=== PATIENT | female | born 1985 ===

== ENCOUNTER → 2018-05-09 15:15 | Observation (INO) ==
[2018-05-09 12:29] LABS: Bilirubin,Urine Negative (Negative); Blood,Urine Negative (Negative); Clarity,Urine Cloudy (Clear); Color,Urine Yellow (Yellow); Glucose,Urine (UA) Normal (Normal); Ketones,Urine Negative (Negative); Leukocyte Esterase,Urine Negative (Negative); Nitrite,Urine Negative (Negative); Protein,Urine Negative (Neg-Trace); Specific Gravity,Urine 1.017 (1.010-1.025); Urobilinogen,Urine Normal (Normal)
[2018-05-09 12:31] LABS: Bacteria,Urine None Seen per hpf (None-Few); Hyaline Casts,Urine None Seen per lpf (None-Few); RBC,Urine 0-3 per hpf (0-3); Squamous Epithelial Cell,Urine Many per lpf (None-Few); WBC,Urine 0-3 per hpf (0-3)
[2018-05-09 12:40] LABS: Amphetamine Screen,Urine Negative ng/mL (Cutoff=1000); Barbiturate Screen,Urine Negative ng/mL (Cutoff=200); Benzodiazepines Screen,Urine Negative ng/mL (Cutoff=200); Cannabinoid Screen,Urine Negative ng/mL (Cutoff = 50); Cocaine Screen,Urine Negative ng/mL (Cutoff= 300); Opiate Screen,Urine Negative ng/mL (Cutoff=300); Phencyclidine Screen,Urine Negative ng/mL (Cutoff=25)
--- NOTE | 2018-05-09 15:00 | Discharge Summary ---
Date of Encounter: 05/09/18 Time of Encounter: 14:59 - Discharge Diagnosis (1) 31 weeks gestation of Priority: Primary Status: Acute Comments: Follow-up with Dr. Bae as scheduled labor parameters given Discharge home (2) Symphysis pubis disruption Priority: Secondary Status: Acute Comments: Obtain a maternity support belt Qualifiers: Encounter type: initial encounter Qualified Code(s): S33.4XXA - Traumatic rupture of symphysis pubis, initial encounter - Discharge Medications Home Medications: Ferrous Sulfate tab PO DAILY 05/09/18 [History] Multi Tablet 1 tab PO DAILY 05/09/18 [History] Allergies/Adverse Reactions: 3 Allergy/AdvReac Type Severity Reaction Status Date / Time No Known Allergies Allergy Verified 05/09/18 12:59 Data Procedures and tests throughout hospitalization: Laboratory Tests 05/09/18 05/09/18 12:10 12:10 Urine Color Yellow Urine Clarity Cloudy A Urine pH 6.0 Ur Specific [place] 1.017 Urine Protein Negative Urine Glucose (UA) Normal Urine Ketones Negative Urine Blood Negative Urine Nitrite Negative Urine Bilirubin Negative Urine Urobilinogen Normal Ur Leukocyte Esterase Negative Urine Microscopic RBC 0-3 Urine Microscopic WBC 0-3 Ur Squamous Epith Cells Many H Urine Bacteria None Seen Hyaline Casts None Seen Urine Opiates Screen Negative Ur Barbiturates Screen Negative Ur Phencyclidine Scrn Negative Ur Amphetamines Screen Negative U Benzodiazepines Scrn Negative Urine Cocaine Screen Negative U Marijuana (THC) Screen Negative Ur Drug Screen Interp See Below Labs on day of discharge: Labs from last 24 hours 05/09/18 05/09/18 12:10 12:10 Urine Color Yellow Urine Clarity Cloudy A Urine pH 6.0 Ur Specific [place] 1.017 Urine Protein Negative Urine Glucose (UA) Normal Urine Ketones Negative Urine Blood Negative Urine Nitrite Negative Urine Bilirubin Negative Urine Urobilinogen Normal Ur Leukocyte Esterase Negative Urine Microscopic RBC 0-3 Urine Microscopic WBC 0-3 Ur Squamous Epith Cells Many H Urine Bacteria None Seen Hyaline Casts None Seen Urine Opiates Screen Negative Ur Barbiturates Screen Negative Ur Phencyclidine Scrn Negative Ur Amphetamines Screen Negative U Benzodiazepines Scrn Negative Urine Cocaine Screen Negative U Marijuana (THC) Screen Negative Ur Drug Screen Interp See Below Date of admission: 05/09/18 12:03 Discharging clinician: Rina Griggs Anticipated date of discharge: 05/09/18 - Patient Status Disposition: Home, Self-Care Condition: Good Functional capacity at discharge: independent ambulation Overall status at discharge: patient is progressing back to baseline - Discharge Instructions Follow Up With: Britney Bae MD [Partnered Physician] - Additional Instructions: Obtain maternity belt for symphisis pubis pain - Diet and Activity Activity: increase activity as tolerated Diet: regular diet Hospital Course 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 She reports pain with sitting and with urination. She endorses good movement and denies leakage of fluid, contractions, vaginal bleeding. UA studies were negative. On further inspection it was determined that she likely has SPD. She was advised to obtain a maternity support belt. Time Attestation: Total time spent providing and/or coordinating discharge services: Time Spent: Greater than 30 minutes Exam - Constitutional General appearance IM: mild distress, A&O X 3, pleasant - Respiratory Respiratory exam: Present: CTAB - Cardiovascular Cardiovascular exam IM: Present: RRR, +S1, +S2 - GI/Abdominal GI/Abdominal exam IM: normal bowel sounds, no peritoneal signs - Rectal Rectal exam: deferred - Uterine Tone: Firm - Extremities Exam Extremities exam IM: Present: normal capillary refill, normal inspection, radial pulses palpable and symmetrical - Neurological Exam Neurological exam: alert, CN II-XII intact, normal gait, oriented X3, reflexes normal, no focal deficits, strengths equal and symetr throughout - VTE Reasons for not Prescribing Prophylaxis: Treatment not Indicated - Low risk for VTE
== END | disposition home or self-care (01) ==
LOC: 1NENULAB
PROVIDERS: ADMIT Obstetrics & Gynecology; ATTEND Obstetrics & Gynecology

== ENCOUNTER 2018-05-18 14:50 | Inpatient (IN) ==
[~2018-05-18 14:50] MED LIST: *HR* Nalbuphine 10 MG/ML AMPUL IVP PRN; CeFAZolin Premix DUPLEX 2,000 MG/50 ML BAG IVPB ONE; Famotidine 20 MG/2 ML VIAL IVP PRN; Metoclopramide 10 MG/2 ML VIAL IVP PRN; Naloxone 0.4 MG/ML INJ IVP PRN; Ondansetron 4 MG/2 ML VIAL IVP PRN; Oxytocin 20 units/ LR 1000 mL 20 UNIT/1,000 ML BAG IVC ONE; Ringers Solution, Lactated 1,000 ML IVC ONE; Ringers Solution, Lactated 1,000 ML ONE
[2018-05-18] MEDS ORDERED: Ringers Solution, Lactated 1,000 ML IVC SCH ×2 (15:00→18:34)
[2018-05-18] MEDS ORDERED: Oxytocin 20 units/ LR 1000 mL 20 UNIT/1,000 ML BAG IVC SCH (15:00)
[2018-05-18 15:06] LABS: Basophils % 0.2 %; Eosinophils % 0.2 %; Hematocrit 37.1 % (35.3-44.9); Hemoglobin 12.4 g/dL (11.5-15.4); Immature Granulocytes % 1.8 % (0-4); Lymphocytes # 1.7 K/mcL (0.6-4.6); Lymphocytes % 16.2 %; Mean Corpuscular HGB Conc 33.4 g/dL (31.6-35.5); Mean Corpuscular Hemoglobin 33.4 pg (28.0-33.3); Mean Platelet Volume 11.8 fL (9.4-12.4); Monocytes % 9.5 %; Neutrophils # 7.4 K/mcL (1.6-8.9); Nucleated Red Blood Cells 1.7 /100 WBC (0); Platelet Count 226 K/mcL (140-400); Red Blood Count 3.71 M/mcL (3.82-4.97); Red Cell Distribution Width 13.5 % (11.5-14.5); Segmented Neutrophils % 72.1 %
[2018-05-18 15:14] LABS: Amphetamine Screen,Urine Negative ng/mL (Cutoff=1000); Barbiturate Screen,Urine Negative ng/mL (Cutoff=200); Benzodiazepines Screen,Urine Negative ng/mL (Cutoff=200); Cannabinoid Screen,Urine Negative ng/mL (Cutoff = 50); Cocaine Screen,Urine Negative ng/mL (Cutoff= 300); Opiate Screen,Urine Negative ng/mL (Cutoff=300); Phencyclidine Screen,Urine Negative ng/mL (Cutoff=25)
[2018-05-18] MEDS ORDERED: *HR* Morphine 2 MG/ML SYRINGE IVP PRN (15:36)
--- NOTE | 2018-05-18 15:36 | Anesthesia Evaluation PreOp ---
Date of Encounter: 05/18/18 Time of Encounter: 15:00 - Past History Planned Operation: Stat Cardiac History: Denies any Significant Hx Pulmonary History: Denies Any Significant HX SENIOR STAFF PSYCHOLOGIST History: Denies Any Significant HX Other Medical History: Denies Any Significant HX Anesthesia History: No Prior Anesthetic Complications : Yes (32 week) Alcohol Use: none Drug use: none Medications and Allergies Ferrous Sulfate tab PO DAILY 05/09/18 [History] Multi Tablet 1 tab PO DAILY 05/09/18 [History] 3 Allergy/AdvReac Type Severity Reaction Status Date / Time No Known Allergies Allergy Verified 05/09/18 12:59 - Meds/Allergy Pre-op Review Medications Reviewed: Yes Allergies Reviewed: Yes Beta Blockers on Current Med List: No Anesthesia Results - Labs 05/18/18 14:40 Anesthesia Exam NPO (# of Hours): MN - HEENT Pupil (Motor): Pupils equal, EOMI Mallampati: II Teeth: Normal Oral Opening: Greater than 3 - SENIOR STAFF PSYCHOLOGIST LOC: Oriented SENIOR STAFF PSYCHOLOGIST Motor: Normal RUE, Normal LUE, Normal RLE, Normal LLE, Normal Face SENIOR STAFF PSYCHOLOGIST Sensory: Normal: RUE, LUE, RLE, LLE, Face - Cardiac Rhythm: Regular Murmur: None JVD: No Carotid Bruit: No - Pulmonary Breath Sounds: bilateral Clear Respiratory Effort: Symmetrical Anesthesia Assess/Plan ASA Score: 2, E Modified [place] Scale for Level of Consciousness: Cooperative, oriented, and tranquil Anesthetic Plan: General Monitoring Plan: Standard Monitors Recovery Plan: PACU (Discussed GA)
[2018-05-18] MEDS ORDERED: Acetaminophen IV 1,000 MG/100 ML INFUS..BTL IVPB ONE (15:37)
[2018-05-18] MEDS ORDERED: Ondansetron 4 MG/2 ML VIAL IVP ONE (15:38)
[2018-05-18] MEDS ORDERED: Dexamethasone 4 MG/ML VIAL ONE (15:59)
[2018-05-18] MEDS ORDERED: *HR* Propofol 200 MG/20 ML VIAL IVP ONE (15:59)
[2018-05-18] MEDS ORDERED: *HR* Oxytocin 10 UNIT/ML VIAL IM ONE (15:59)
[2018-05-18] MEDS ORDERED: Ondansetron 4 MG/2 ML VIAL ONE (15:59)
[2018-05-18] MEDS ORDERED: *HR* FentaNYL (PF) 100 MCG/2 ML VIAL ONE ×2 (15:59→16:21)
[2018-05-18] MEDS ORDERED: *HR* Succinylcholine 200 MG/10 ML VIAL IVP ONE (15:59)
[2018-05-18] MEDS ORDERED: *HR* Morphine Sulfate/PF 10 MG/10 ML AMPUL ONE (15:59)
[2018-05-18] MEDS ORDERED: Naloxone 0.4 MG/ML INJ IVP PRN ×2 (16:29→19:32)
[2018-05-18] MEDS ORDERED: *HR* HYDROmorphone 20 MG/20 ML PCA IVC PRN ×2 (16:29→19:32)
--- NOTE | 2018-05-18 18:02 | OB/GYN History & Physical ---
Date of Encounter: 05/18/18 Time of Encounter: 17:55 Assessment and Plan (1) with 32 completed weeks gestation Current visit: Yes Status: Acute (2) Twin gestation in third trimester Current visit: Yes Status: Acute Qualifiers: Multiple gestation type: dichorionic and diamniotic Qualified Code(s): O30.043 - Twin , dichorionic/diamniotic, third trimester (3) distress Current visit: Yes Status: Acute twin A with micrognathia close antepartum monitoring has been continued and biophysical profile was determined to be 2 out of 8 today. Did discuss his case with NICU as per H&P I decision was made to proceed with section History of Present Illness Chief complaint: Twin gestation at 32 weeks and 3 days, twin A with distress biophysic HPI: Ms. Orosco is a 32 year old female 3 para 0 female with an EDC of 1110 2018 presents at 32 weeks 2 days' gestation. Patient had transferred care during this from [place] where she is undergoing infertility treatment patient with diabetes undergone selective reduction to 2. Patient had been followed by [facility] maternal medicine after twin A was noted to have polyhydramnios as well as probable micrognathia and small stomach. There have been no genetic testing performed. Last ultrasound for growth was on April 05 which time both infants were concordant growth approximately 19%. She had been seen last Friday with biophysical profile of 6 out of 8 at [facility] and had been admitted For observation over the weekend and left AGAINST MEDICAL ADVICE yesterday. She came in today to the office in biophysical profile twin A showed [address] Oneill did discuss case with [facility] maternal medicine Dr. Lissette Kiran. By she be transferred to labor and delivery placed on the monitor discontinued have nonreactive NST have repeat biophysical profile and 15 minutes. This was performed afterwards did not really follow twin A indicating biophysical profile was 2 out of 8. We did have 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 She is aware of my concern over risk of transfer however she is also aware we are great risk of difficult intubation and possible loss of in today for delivery here requiring intubation or tracheostomy tube and it could not be performed. Patient did consent for delivery here with great concern over further harm to twin A if delivery was expedited. We did discuss operative risks with patient via a tar and ammonia pump operator and written consent was obtained. Past Med Surg Social Fam HX - Past Medical History Source: patient, old records reviewed Medical history: no medical history Psychiatric history: no psych history - Past Surgical History Additional surgical history: appy - Social History Smoking Status: Never smoker Smokeless Tobacco Status: No Alcohol use: none Drug use: none Obstetrical History - Pregnancies : 3 Medications and Allergies Ferrous Sulfate tab PO DAILY 05/09/18 [History] Multi Tablet 1 tab PO DAILY 05/09/18 [History] 3 Allergy/AdvReac Type Severity Reaction Status Date / Time No Known Allergies Allergy Verified 05/09/18 12:59 Exam - Constitutional Constitutional: well developed, well nourished, no acute distress - HEENT HEENT: EOMI, PERRL - Neck Neck exam: full ROM - Lungs Respiratory exam: CTAB - Cardiovascular Cardiovascular exam: RRR - Abdomen Abdomen: Present: gravid - Extremities Extremities exam: full ROM Deep Tendon Reflex Grade: 2+ Normal Results Result Diagrams: 05/18/18 14:40 Abnormal lab results RBC 3.71 M/mcL (3.82-4.97) L 05/18/18 14:40 MCH 33.4 pg (28.0-33.3) H 05/18/18 14:40 Nucleated RBCs/100 WBC 1.7 /100 WBC (0) H 05/18/18 14:40 All other labs normal.
--- NOTE | 2018-05-18 18:08 | OB/GYN Procedure Note ---
Section - Date of procedure: 05/18/18 Preop diagnosis: other (Twin gestation, distress of twin A necessitating delivery, polyhydramnios around twin A as well as micrognathia and small stomach of twin A) Surgeon: Tal Amezquita Quantitated Blood Loss: 900 Was there an production administrative assistant present: No Anesthesiologist: Donovan Pizarro Mortar Worker: Alex Jacome Anesthesia Type: General section complications: none Disposition: L&D Recovery Room Specimens: Placenta, Cord gasses - Infant (s) A Delivery Date: 05/18/18 Delivery Time: 15:19 Presentation: vertex Gender: Female Viability: Viable Shoulder Dystocia: not encountered Specimens collected: cord blood Cord: 3 umbilical vessels Infant B Delivery Date: 05/18/18 Delivery Time: 15:19 Gender: Female Viability: Viable Shoulder Dystocia: not encountered Cord: 3 umbilical vessels - Narrative Narrative: 32-year-old 3 para 0 female at 32 weeks 2 days' gestation with twin gestation. complicated by twin A with polyhydramnios as well as suspected micrognathia stomach. She has been undergoing close antepartum monitoring and actually been admitted to [facility] on Friday after biophysical profile 6 out of 10. She did leave AGAINST MEDICAL ADVICE yesterday and was seen in our office today for biophysical profile. Today biophysical profile for twin A was [address] Lemus he did speak with the [facility] maternal medicine advised patient come to labor and delivery if she does not have reactive NST to have another biophysical profile and 15 minutes. This was done and second biophysical profile was again to elevate. As stated in history of present illness we did have a [place] presidential support specialist available after discussed with patient options in terms for demise during transfer versus possible delivery here and because of possible due to difficult intubation and inability to intubate infant leading to compromise or demise. Patient was aware of risks as well as operative risks and the desire to deliver to be performed here. Consent was obtained. Description procedure: Patient was taken operating room where general anesthesia was monitored. She is prepped draped in usual sterile fashion. Bladder was drained of clear urine with Taylor catheter. Scalpel was used to make a Pfannenstiel skin incision which was sharply taken down the rectus fascia. Fascia was incised midline fascial incision was extended bilaterally. Plane was O2 next muscle rectus fascia distally rectus muscles divided and peritoneum was entered bluntly. Bladder blade was placed and bladder flap was developed and lower uterine segment. Scalpel was used to make a transverse uterine incision this was extended bluntly bilaterally. Copious amount of fluid was ruptured around twin A and the fluid was clear. Twin A was delivered from vertex presentation cord was clamped and cut and infant was handed nurse personnel who were in attendance. Of note after clamping and cutting the cord was noted to be some bleeding very near the umbilicus therefore the cord was going clamped and Proximal to this. Twin B was then delivered from vertex presentation membranes ruptured clear fluid and again cord was clamped and cut and infant was handed nurse personnel who were in attendance. Placenta was delivered and delivered manually without difficulty and uterine cavity was massaged free of all residual tissue. Uterus was closed 0 Vicryl running lock stitch. Second imbricating layer was placed for the first obtain hemostasis. Again irrigation was performed hemostasis was ensured. Fascia was closed 0 Vicryl running manner. After closure of fascia can irrigation performed hemostasis was ensured. Skin edges reapproximated with nneka. All sponge counts counts are correct patient was taken recovery in good condition.
[2018-05-18] MEDS ORDERED: Sennosides 8.6 MG TABLET PO PRN (18:34)
[2018-05-18] MEDS ORDERED: *HR* OxyCODONE/APAP 5/325 TABLET PO PRN (18:34)
[2018-05-18] MEDS ORDERED: Ondansetron 4 MG/2 ML VIAL IVP PRN (18:34)
[2018-05-18] MEDS ORDERED: Metoclopramide 10 MG/2 ML VIAL IVP PRN (18:34)
[2018-05-18] MEDS ORDERED: Rho Immune Globulin 1,500 UNIT SYRINGE IM ONE (18:34)
[2018-05-18] MEDS ORDERED: Simethicone 80 MG TAB.CHEW PO PRN (18:34)
[2018-05-19] MEDS: Oxytocin 20 units/ LR 1000 mL 20 UNIT/1,000 ML BAG IVC SCH ×2 (02:39)
[2018-05-19 04:17] LABS: Basophils % 0.1 %; Eosinophils % 0.1 %; Hematocrit 29.2 % (35.3-44.9); Immature Granulocytes % 1.3 % (0-4); Lymphocytes # 1.7 K/mcL (0.6-4.6); Lymphocytes % 10.2 %; Mean Corpuscular HGB Conc 33.6 g/dL (31.6-35.5); Mean Corpuscular Hemoglobin 33.7 pg (28.0-33.3); Mean Corpuscular Volume 100.3 fL (83.0-100.0); Monocytes # 1.1 K/mcL (0.0-1.3); Monocytes % 6.8 %; Neutrophils # 13.3 K/mcL (1.6-8.9); Nucleated Red Blood Cells 2.5 /100 WBC (0); Platelet Count 221 K/mcL (140-400); Red Blood Count 2.91 M/mcL (3.82-4.97); Red Cell Distribution Width 13.3 % (11.5-14.5); Segmented Neutrophils % 81.5 %
[2018-05-19 04:20] LABS: Hemoglobin 9.8 g/dL (11.5-15.4)
[2018-05-19] MEDS: Prenatal Vit/FA 1 EACH TABLET PO SCH (08:55)
--- NOTE | 2018-05-19 10:57 | OB/GYN Progress Note ---
Date of Encounter: 05/19/18 Time of Encounter: 10:55 - Assessment and Plan (1) delivery, delivered, current hospitalization Current Visit: Yes Status: Acute Pt meeting POD1 milestones. Plan for ambulation today. Continue to optimize pain control. Anticipate discharge home POD2-3. Subjective - Subjective Patient reports: appetite normal, voiding normally, pain well controlled (pain moderately well controlled), ambulating normally : doing well Objective - Vital Signs Latest vital signs: Vital Signs Temp Pulse Resp BP Pulse Ox 05/19/18 08:00 98.0 F 64 14 120/73 96 05/19/18 04:15 97.9 F 64 14 130/81 97 05/19/18 00:25 97.9 F 67 14 143/76 98 05/18/18 21:35 97.6 F 68 14 136/86 96 05/18/18 20:30 97.8 F 58 16 129/75 98 05/18/18 19:30 97.7 F 62 14 110/69 95 05/18/18 19:00 98.0 F 67 14 115/75 95 05/18/18 18:30 97.5 F L 70 12 125/74 95 Intake and Output 05/18/18 05/19/18 05/19/18 23:59 07:59 15:59 Intake Total 120 / 120 Output Total 600 / 600 700 / 700 500 / 500 Balance -600 / -600 -580 / -580 -500 / -500 Intake: Oral 120 / 120 Output: Urine 500 / 500 Catheter 600 / 600 700 / 700 Other: Weight 65.1 kg 57.425 kg Patient Weight 05/19/18 23:59 Weight 57.425 kg - Exam Lungs: bilateral: normal Chest: Normal S1, Normal S2 Extremities: Present: edema (mild bilaterally) Abdomen: Present: soft, distention (tympanic to percussion) Uterus: Present: firm - Labs Labs: Laboratory Results - last 24 hr 05/18/18 05/18/18 05/19/18 14:40 14:40 03:55 WBC 10.3 16.3 H D RBC 3.71 L 2.91 L Hgb 12.4 9.8 L D Hct 37.1 29.2 L MCV 100.0 100.3 H MCH 33.4 H 33.7 H MCHC 33.4 33.6 RDW 13.5 13.3 Plt Count 226 221 MPV 11.8 12.0 Immature Gran % 1.8 1.3 Seg Neutrophils % 72.1 81.5 Lymphocytes % 16.2 10.2 Monocytes % 9.5 6.8 Eosinophils % 0.2 0.1 Basophils % 0.2 0.1 Neutrophils # 7.4 13.3 H Lymphocytes # 1.7 1.7 Monocytes # 1.0 1.1 Eosinophils # 0.0 0.0 Basophils # 0.0 0.0 Nucleated RBCs/100 WBC 1.7 H 2.5 H Urine Opiates Screen Negative Ur Barbiturates Screen Negative Ur Phencyclidine Scrn Negative Ur Amphetamines Screen Negative U Benzodiazepines Scrn Negative Urine Cocaine Screen Negative U Marijuana (THC) Screen Negative Ur Drug Screen Interp See Below
[2018-05-19] MEDS: *HR* OxyCODONE/APAP 5/325 TABLET PO PRN (12:28)
[2018-05-19] MEDS: Ibuprofen 600 MG TABLET PO PRN (20:40)
[2018-05-20 08:05] VITALS: BP 124/78
[2018-05-20] MEDS: Ibuprofen 600 MG TABLET PO PRN (08:06)
[2018-05-20] MEDS: Prenatal Vit/FA 1 EACH TABLET PO SCH (08:06)
--- NOTE | 2018-05-20 14:49 | Discharge Summary ---
Date of Encounter: 05/20/18 Time of Encounter: 14:44 - Discharge Diagnosis (1) delivery, delivered, current hospitalization Priority: Primary Status: Acute Comments: Stable, pain well managed on po pain medication, tolerates diet, +flatus, pumping, infants in NICU (2) anemia Priority: Secondary Status: Acute Comments: Will discharge home on iron - Discharge Medications Prescriptions: OxyCODONE/APAP 5/325 [Percocet 5/325 MG] 1 each PO Q4HR PRN 5 Days #20 tablet PRN Reason: Pain Ibuprofen [Motrin] 600 mg PO Q6HR PRN #60 tablet PRN Reason: Cramping Docusate [Colace] 100 mg PO BID #30 capsule Ferrous Sulfate 325 mg PO 0800 #60 tablet Home Medications: Ferrous Sulfate tab PO DAILY 05/09/18 [History] Multi Tablet 1 tab PO DAILY 05/09/18 [History] Docusate [Colace] 100 mg PO BID #30 capsule 05/20/18 [Rx] Ferrous Sulfate 325 mg PO 0800 #60 tablet 05/20/18 [Rx] Ibuprofen [Motrin] 600 mg PO Q6HR PRN #60 tablet 05/20/18 [Rx] OxyCODONE/APAP 5/325 [Percocet 5/325 MG] 1 each PO Q4HR PRN 5 Days #20 tablet [Rx] Vit/FA 1 each PO DAILY tablet 05/20/18 [Rx] Simethicone [Gas-X] 80 mg PO TID PRN tab.chew 05/20/18 [Rx] Allergies/Adverse Reactions: 3 Allergy/AdvReac Type Severity Reaction Status Date / Time No Known Allergies Allergy Verified 05/09/18 12:59 Data Procedures and tests throughout hospitalization: Laboratory Tests 05/18/18 05/18/18 05/19/18 14:40 14:40 03:55 WBC 10.3 16.3 H D RBC 3.71 L 2.91 L Hgb 12.4 9.8 L D Hct 37.1 29.2 L MCV 100.0 100.3 H MCH 33.4 H 33.7 H MCHC 33.4 33.6 RDW 13.5 13.3 Plt Count 226 221 MPV 11.8 12.0 Immature Gran % 1.8 1.3 Seg Neutrophils % 72.1 81.5 Lymphocytes % 16.2 10.2 Monocytes % 9.5 6.8 Eosinophils % 0.2 0.1 Basophils % 0.2 0.1 Neutrophils # 7.4 13.3 H Lymphocytes # 1.7 1.7 Monocytes # 1.0 1.1 Eosinophils # 0.0 0.0 Basophils # 0.0 0.0 Nucleated RBCs/100 WBC 1.7 H 2.5 H Urine Opiates Screen Negative Ur Barbiturates Screen Negative Ur Phencyclidine Scrn Negative Ur Amphetamines Screen Negative U Benzodiazepines Scrn Negative Urine Cocaine Screen Negative U Marijuana (THC) Screen Negative Ur Drug Screen Interp See Below - Impressions ITS Impressions KUB X-Ray 05/18/18 15:43 IMPRESSION: Unremarkable KUB. Specifically, no retained instrument, needle or lap sponge is evident radiographically. D/ / Brody Rios / Brody Rios Interpreting Provider: Brody Rios Date of admission: 05/18/18 14:50 Primary care physician: PCP NONE Discharging clinician: Debora Tyson Anticipated date of discharge: 05/20/18 - Patient Status Disposition: Home, Self-Care Functional capacity at discharge: independent ambulation Overall status at discharge: patient is back to baseline - Discharge Instructions Follow Up With: NONE,PCP [Primary Care Provider] - Britney Bae MD [Partnered Physician] - - Diet and Activity Activity: resume usual activities as tolerated Diet: regular diet Hospital Course Reason for admission: IUP - , section Delivery: section Episiotomy: none Laceration: none Other procedures: none complications: none Discharge diagnosis: delivery Hospital course: Section - Date of procedure: 05/18/18 Preop diagnosis: other (Twin gestation, distress of twin A necessitating delivery, polyhydramnios around twin A as well as micrognathia and small stomach of twin A) Surgeon: Tal Amezquita Quantitated Blood Loss: 900 Was there an assistant professor of german present: No Anesthesiologist: Donovan Pizarro Business Banker: Alex Jacome Anesthesia Type: General section complications: none Disposition: L&D Recovery Room Specimens: Placenta, Cord gasses - (s) A Infant Delivery Date: 05/18/18 Delivery Time: 15:19 Presentation: vertex Gender: Female Viability: Viable Shoulder Dystocia: not encountered Specimens collected: cord blood Cord: 3 umbilical vessels Infant B Infant Delivery Date: 05/18/18 Infant Delivery Time: 15:19 Gender: Female Viability: Viable Shoulder Dystocia: not encountered Cord: 3 umbilical vessels Stable in PP and appropriate for discharge. OARRS reviewed. Time Attestation: Total time spent providing and/or coordinating discharge services: Time Spent: Less than 30 minutes - VTE Documentation of Mechanical Device: Intermittent pneumatic compression device Exam - Constitutional Vitals: Temp Pulse Resp BP Pulse Ox 98.4 F 64 16 124/78 97 05/20/18 07:30 05/20/18 07:30 05/20/18 07:30 05/20/18 07:30 05/19/18 20:15 General appearance IM: A&O X 3 - Respiratory Respiratory exam: Present: CTAB - Cardiovascular Cardiovascular exam IM: Present: RRR - GI/Abdominal GI/Abdominal exam IM: soft Incision: intact ([place]) - Uterine Tone: Firm Uterus Position: At Umbilicus - Extremities Exam Extremities exam IM: Present: normal capillary refill, normal inspection - Neurological Exam Neurological exam: normal gait, oriented X3 - Psychiatric Additional comments: Reports good mood
[2018-05-20] MEDS: *HR* OxyCODONE/APAP 5/325 TABLET PO PRN (16:13)
== END 2018-05-20 16:28 | disposition home or self-care (01) | DRG 765 ==
LOC: 1NENULAB → 1NENUOBS 18:24
PROVIDERS: ADMIT Obstetrics & Gynecology; ATTEND Obstetrics & Gynecology